=== PATIENT | female | born 1985 | race Asian ===

== ENCOUNTER 2022-09-15 21:20 | Emergency (ER) | payer OTHER, SELFPAY ==
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
[2022-09-15 21:34] VITALS: BP 122/82; BP 146/98; PULSE 88; PULSE 89; RESP 16; TEMP 36.6; O2SAT 100; O2SAT 97; BMI 25.7
[2022-09-15 22:25] LABS: Ethanol < 10 mg/dL
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
[2022-09-15] MEDS: Acetaminophen 325 MG TABLET 975 MG PO (23:49)
== END 2022-09-16 01:26 | disposition home or self-care (01) ==
PROVIDERS: Emergency Provider Emergency Medicine
DX: Z04.1 Encounter for examination and observation following transport accident (principal); G89.11 Acute pain due to trauma; M25.562 Pain in left knee; M25.561 Pain in right knee
CPT/HCPCS: 36415; 73562; 82077; 99283